=== PATIENT | male | born 1980 | race Caucasian/White ===

== ENCOUNTER 2023-05-13 09:12 | Outpatient (CLI) | payer OTHER, SELFPAY ==
--- NOTE | 2023-05-13 09:15 | US_ITS ---
Patient: LUIS MORRISON Facility:?[facility] Patient ID:?[id number] Site Patient ID:?[id number]. Site :?[id number] Study:?US-Abdomen soft tissue-05/13/2023 10:41:18 AM Ordering Physician:FARA Final Report: INDICATION: Palpable, sometimes tender sternum/xiphoid process. TECHNIQUE: Focused ultrasound of the soft tissues around the xiphoid process. FINDINGS: Images demonstrate normal soft tissue around the xiphoid process. No sonographic abnormality. Dictated by Erasmo Yi MD @ 05/14/2023 9:09:11 AM Signed by:?Erasmo Yi MD @05/14/2023 9:09:11 AM (Electronic Signature)
== END 2023-05-13 09:13 | disposition home or self-care (01) ==
PROVIDERS: Visit Provider Nurse Practitioner Family
DX: R10.13 Epigastric pain (principal)
CPT/HCPCS: 76705